=== PATIENT | female | born 1995 | race African-American/Black ===

== ENCOUNTER 2017-09-18 03:11 | Emergency (ER) | payer BC ==
[2017-09-18 03:31] VITALS: BP 134/78; PULSE 79; TEMP 98.4; BMI 37.3
--- NOTE | 2017-09-18 03:46 | PDOC ---
History of Present Illness - General Chief Complaint: CVA/TIA Stated Complaint: NUMBNESS/RT SIDE FACE Time Seen by Provider: 09/18/17 03:35 History Source: Patient - History of Present Illness Initial Comments: 09/18/17 03:42 22 year old female with numbness to right sided facial twitching x 24 hours. reports similar symptoms 4 months ago hit head while riding a rollercoaster and immediately after the ride patient had right sided facial droop, which self resolved. reports that current symptoms have self resolved. Timing/Duration: reports: 24 hours Past History - Travel Traveled outside of the country in the last 30 days: Yes Close contact w/someone who was outside of country & ill: No - Past Medical History Allergies/Adverse Reactions: Allergies Allergy/AdvReac Type Severity Reaction Status Date / Time No Known Allergies Allergy Verified 09/18/17 03:27 Home Medications: Ambulatory Orders NK [No Known Home Medication] 09/18/17 - Suicide/Smoking/Psychosocial Hx Smoking History: Never smoked Have you smoked in the past 12 months: No Information on smoking cessation initiated: No Hx Alcohol Use: No Drug/Substance Use Hx: No Review of Systems - Review of Systems Able to Perform ROS?: Yes Is the patient limited Bhutanese proficient: No Neurological: Yes: Paresthesia *Physical Exam - Vital Signs Last Vital Signs Temp Pulse Resp BP Pulse Ox 98.4 F 79 20 134/78 98 09/18/17 03:27 09/18/17 03:27 09/18/17 03:27 09/18/17 03:27 09/18/17 03:27 - Physical Exam General Appearance: Yes: Appropriately Dressed HEENT: positive: Normal ENT Inspection Cardiovascular: positive: Regular Rhythm, Regular Rate Gastrointestinal/Abdominal: positive: Normal Bowel Sounds, Soft Extremity: positive: Normal Capillary Refill Integumentary: positive: Normal Color, Warm Neurologic: positive: Fully Oriented, Alert NIH Stroke Scale - Last Known Well Date/Time & Onset Date Last Known Well: 09/17/17 Time Last Known Well: 08:00 - Initial Evaluation Level of consciousness: Alert Ask patient the month and their age: Answers both correctly Ask patient to open & close eyes; make fist and let go: Obeys both correctly Best gaze (horizontal eye movement): Normal Visual field testing: No visual field loss Facial paresis (Show teeth/raise eyebrows/close eyes tight): Normal symmetrical movement Motor Function: Left Arm: Normal Motor Function: Right Arm: Normal (extends arm 90 (or 45) degrees for 10 seconds without drift Motor Function: Left Leg: Normal (extends leg 30 degrees for 5 seconds without drift) Motor Function: Right Leg: Normal (extends leg 30 degrees for 5 seconds without drift) Limb Ataxia: No ataxia Sensory(Use pinprick test arms,legs,trunk,face/side to side): Normal Best language (Describe picture, name items, read sentences): No Aphasia Dysarthria (read several words): Normal articulation Extinction and Inattention: No abnormality - Total Score NIH Stroke Scale Score: 0 Critical Care Time/MDM Note - Medical Decision Making Note: 09/18/17 03:45 A: Right sided faciAL NUMBNESS p; CT HEAD CBC CMP 09/18/17 05:23 PATIENT REQUESTING TO GO HOME. SIGNED OUT AMA. ALL RISK FACTORS REVIEWED. PERSON VERBALIZED UNDERSTANDING. Discharge Disposition - Diagnosis Right facial numbness - Discharge Dispostion Disposition: AGAINST MEDICAL ADVICE
--- NOTE | 2017-09-18 04:05 | PDOC ---
*Physical Exam - Vital Signs Last Vital Signs Temp Pulse Resp BP Pulse Ox 98.4 F 79 20 134/78 98 09/18/17 03:27 09/18/17 03:27 09/18/17 03:27 09/18/17 03:27 09/18/17 03:27 Medical Decision Making - Medical Decision Making 09/18/17 04:04 agree with care from CRUSHER MACHINE OPERATOR Dwight
[2017-09-18 05:13] LABS: URINE APPEARANCE SLCLOUDY; URINE BILIRUBIN NEGATIVE (NEGATIVE); URINE BLOOD NEGATIVE (NEGATIVE); URINE COLOR YELLOW; URINE GLUCOSE (UA) NEGATIVE (NEGATIVE); URINE KETONE NEGATIVE (NEGATIVE); URINE NITRITE NEGATIVE (NEGATIVE); URINE PROTEIN NEGATIVE (NEGATIVE); URINE UROBILINOGEN NEGATIVE mg/dL (0.2-1.0)
[2017-09-18 05:13] LABS: BASOPHIL 0.3 % (0-2.0); EOSINOPHIL 1.6 % (0-4.5); MCH 26.6 pg (25.7-33.7); MEAN CELL VOLUME 80.6 fl (80-96); NEUTROPHILS 46.9 % (42.8-82.8); PLATELET COUNT 230 K/MM3 (134-434); RDW 15.3 % (11.6-15.6); WHITE BLOOD COUNT 7.3 K/mm3 (4.0-10.0)
[2017-09-18 05:23] LABS: INR 1.09 (0.82-1.09); PROTHROMBIN TIME (PATIENT) 12.3 SEC (9.98-11.88)
[2017-09-18 05:37] LABS: ALBUMIN 3.8 g/dl (3.4-5.0); ANION GAP 11 (8-16); BILIRUBIN,TOTAL 0.4 mg/dL (0.2-1.0); CALCIUM 8.7 mg/dL (8.5-10.1); CO2 24 mmol/L (21-32); CREATININE 0.7 mg/dL (0.55-1.02); GLUCOSE,RANDOM 98 mg/dL (74-106); SGOT/AST 24 U/L (15-37); SGPT/ALT 46 U/L (12-78); TOT PROT 6.5 g/dl (6.4-8.2)
[2017-09-18 05:41] LABS: ALK PHOS 52 U/L (45-117); CPK 162 IU/L (26-192); TROPONIN I < 0.02 ng/ml (0.00-0.05)
[2017-09-18 09:33] LABS: URINE LEUK ESTERASE Negative (NEGATIVE)
--- NOTE | 2017-09-21 14:43 | EKG ---
Test Reason : Blood Pressure : / mmHG Vent. Rate : 075 BPM Atrial Rate : 075 BPM P-R Int : 170 ms QRS Dur : 074 ms QT Int : 372 ms P-R-T Axes : 033 036 044 degrees QTc Int : 415 ms POOR DATA QUALITY, INTERPRETATION MAY BE ADVERSELY AFFECTED NORMAL SINUS RHYTHM NORMAL ECG NO PREVIOUS ECGS AVAILABLE Confirmed by PATY GORDON MD ([id number]) on 09/18/2017 9:42:05 AM Also confirmed by PATY GORDON MD ([id number]), multimedia editor ISAURA PORTILLO ([id number]) on 09/21/2017 2:43:34 PM Referred By: Confirmed By:PATY GORDON MD
== END 2017-09-18 05:30 | disposition left against medical advice (07) ==
LOC: JER 03:11
DX: R20.0 Anesthesia of skin (principal); R25.3 Fasciculation
CPT/HCPCS: 36415; 80053; 81003; 82550; 82553; 84478; 84484; 84703; 85025; 85610; 86850; 86900; 86901; 93005; 93010; 99281-25

== ENCOUNTER 2019-03-29 18:14 | Emergency (ER) | payer BC ==
[2019-03-29 18:31] VITALS: BP 140/93; PULSE 90; TEMP 98.6; BMI 41.3
[2019-03-29] MEDS ORDERED: MECLIZINE HCL 25 MG TABLET (FP) PO ONE (19:20)
[2019-03-29] MEDS ORDERED: MECLIZINE HCL 25 MG TABLET (FP) ONE (19:21)
[2019-03-29 19:49] LABS: BASO % 1.1 % (0-2.0); HEMATOCRIT 41.3 % (32.4-45.2); HEMOGLOBIN 13.4 GM/dl (10.7-15.3); LYMPH % 37.1 % (8-40); MCH 26.6 pg (25.7-33.7); MCHC 32.4 g/dl (32.0-36.0); MEAN PLT VOLUME 8.5 fl (7.5-11.1); MONO % 6.4 % (3.8-10.2); NEUT % 54.4 % (42.8-82.8); PLATELET COUNT 279 K/MM3 (134-434); RBC 5.03 M/mm3 (3.60-5.2); RDW 14.7 % (11.6-15.6); WHITE BLOOD COUNT 4.8 K/mm3 (4.0-10.8)
[2019-03-29 20:00] LABS: ALBUMIN 3.7 g/dl (3.4-5.0); ALK PHOS 46 U/L (45-117); ANION GAP 6 MMOL/L (8-16); BILIRUBIN,TOTAL 0.4 mg/dl (0.2-1); BLOOD UREA NITROGEN 11 mg/dl (7-18); CALCIUM 9.3 mg/dl (8.5-10); CHLORIDE 104 mmol/L (98-107); CO2 26 mmol/L (21-32); CREATININE 0.6 mg/dl (0.55-1.3); GLUCOSE,RANDOM 94 mg/dl (74-106); POTASSIUM 3.9 mmol/L (3.5-5.1); SGOT/AST 21 U/L (15-37); SGPT/ALT 30 U/L (13-61); SODIUM 136 mmol/L (136-145)
--- NOTE | 2019-03-29 20:15 | PDOC ---
Documentation entered by Maxine Gaspar SCRIBE, acting as scribe for Mario Alberto Toro MD. Mario Alberto Toro MD: This documentation has been prepared by the Hubert rosado Renju, SCRIBE, under my direction and personally reviewed by me in its entirety. I confirm that the documentation accurately reflects all work, treatment, procedures, and medical decision making performed by me. History of Present Illness - General Chief Complaint: Lightheaded Stated Complaint: dizziness s/p overdose of Iron pills. Time Seen by Provider: 03/29/19 19:06 History Source: Patient Exam Limitations: No Limitations - History of Present Illness Initial Comments: 03/29/19 19:31 HPI The patient is a 24 year old female who presents to the emergency department complaining of dizziness. Patient reports dizziness since Thursday, described as room spinning, and exacerbated with head movement. She notes her dizziness began on her flight back from [place] on Thursday. Patient endorses mild congestion from seasonal allergies and one episode of nausea on the flight back to [place]. She denies taking medication for the aforementioned symptoms. Patient notes she took five 28mg iron capsules on Thursday. She states she has been taking iron pills daily over the last 6 months due to episodes of fatigue as her mother suggested she may be anemic. Patient states her last blood work was done in June where she was told she was not anemic. She endorses dry/ scratchy throat, but denies recent upper respiratory infections, or cough. Denies history of known blood disorder. The patient denies chest pain, shortness of breath, and headache. Denies fevers , chills, nausea, vomiting, diarrhea, and constipation. PAST MEDICAL HISTORY: Asthma PAST SURGICAL HISTORY: no significant history FAMILY HISTORY: no pertinent history SOCIAL HISTORY: Pt lives with family and is employed. MEDICATIONS: reviewed ALLERGIES: As per nursing notes Review of Systems General: No fevers or chills, no weakness, no weight loss HEENT: No change in vision. No sore throat,. No ear pain Cardiovascular: No chest pain or shortness of breath Respiratory:No cough, or wheezing. Gastrointestinal: no nausea, vomiting, diarrhea or constipation, No rectal bleeding Genitourinary: No dysuria, hematuria, or frequency Musculoskeletal: No joint or muscle pain or swelling Neurologic: (+)Dizziness. No headache, vertigo, or loss of consciousness Psychiatric: nor depression Skin: No rashes or easy bruising Endocrine: no increased thirst or abnormal weight change Allergic: no skin or latex allergy All other systems reviewed and normal Physical Exam: General: Well-nourished well-developed individual, no acute distress HEENT: Throat: Normal, tonsils normal, no erythema or exudate Neck: Supple, no meningeal signs, no lymphadenopathy Eyes:Pupils equal reactive and round, extraocular motion intact Chest: Nontender to palpation Cardiac: S1-S2 normal, regular rate and rhythm, no murmurs rubs or gallops Respiratory: Lungs clear to auscultation bilateral Abdomen: Soft, nondistended, normal bowel sounds, nontender to palpation diffusely Extremities: Warm, dry, no cyanosis, clubbing, or edema Skin: No rashes Neuro: Alert and oriented x3, nonfocal exam, grossly intact, normal gait Psych: Normal mood and affect 03/29/19 20:12 Assessment and plan: This is a 24 her old female who comes in complaining of dizziness. Patient describes her dizziness as a spinning sensation or vertigo. Patient does have seasonal ALLERGIES otherwise denies any other symptoms. Patient said that it was associated with nausea a few days ago but that seems to have improved. Patient otherwise denies any complaints. Patient given meclizine And basic labs were sent as patient thought she may be anemic so labs were normal with a hemoglobin of 13.5. Patient was told she should stop taking iron pills and follow-up with her primary care doctor in 6 months to have her hemoglobin level rechecked Past History - Past Medical History Allergies/Adverse Reactions: Allergies Allergy/AdvReac Type Severity Reaction Status Date / Time No Known Allergies Allergy Verified 03/29/19 18:17 Home Medications: Ambulatory Orders Albuterol Sulfate Inhaler - [Ventolin Hfa Inhaler -] 2 inh PO Q6H PRN 03/29/19 Beclomethasone Dipropionate [Qvar] 80 mcg IH BID 03/29/19 Fluticasone Prop 0.05% Nasal [Flonase -] 1 - 2 spray NS BID 03/29/19 Meclizine HCl [Antivert -] 25 mg PO QID #28 tablet 03/29/19 Anemia: Yes Asthma: Yes COPD: No - Suicide/Smoking/Psychosocial Hx Smoking History: Never smoked Have you smoked in the past 12 months: No Hx Alcohol Use: No Drug/Substance Use Hx: No *Physical Exam - Vital Signs Last Vital Signs Temp Pulse Resp BP Pulse Ox 98.6 F 90 16 140/93 99 03/29/19 18:16 03/29/19 18:16 03/29/19 18:16 03/29/19 18:16 03/29/19 18:16 ED Treatment Course - LABORATORY CBC & Chemistry Diagram: 03/29/19 19:29 03/29/19 19:29 - ADDITIONAL ORDERS Additional order review: Laboratory Results 03/29/19 19:29 Sodium 136 Potassium 3.9 Chloride 104 Carbon Dioxide 26 Anion Gap 6 L BUN 11 Creatinine 0.6 Creat Clearance w eGFR 120.84 Random Glucose 94 Calcium 9.3 Total Bilirubin 0.4 AST 21 ALT 30 Alkaline Phosphatase 46 Total Protein 7.0 Albumin 3.7 03/29/19 19:29 RBC 5.03 MCV 82.0 MCHC 32.4 RDW 14.7 MPV 8.5 Neutrophils % 54.4 Lymphocytes % 37.1 Monocytes % 6.4 Eosinophils % 1.0 Basophils % 1.1 - Medications Given in the ED: ED Medications Discontinued Medications Generic Name Dose Route Start Last Admin Trade Name Freq PRN Reason Stop Dose Admin Meclizine HCl 50 mg 03/29/19 19:20 03/29/19 19:28 Antivert - PO 03/29/19 19:21 50 mg ONCE ONE Administration *DC/Admit/Observation/Transfer Diagnosis at time of Disposition: Vertigo - Discharge Dispostion Disposition: HOME Condition at time of disposition: Fair Decision to Admit order: No - Prescriptions Prescriptions: Meclizine HCl [Antivert -] 25 mg PO QID #28 tablet - Referrals - Patient Instructions Additional Instructions: Take meclizine 1 tablet as often as 4 times a day for the dizziness/spinning sensation. Your blood work was all normal including your hemoglobin level which says you are not anemic. You should stop taking the iron tablets and follow up with your primary care doctor in 6 months to have it rechecked, Return to the emergency department immediately with ANY new, persistent or worsening symptoms. Continue any medications as previously prescribed by your physician. You should follow up with your primary doctor as soon as possible regarding today's emergency department visit. . Please make sure your doctor reviews the results of your emergency evaluation. Thank you for coming to the Emergency Department today for your care. It was a pleasure to see you today. Please note that your evaluation is INCOMPLETE until you follow-up with your doctor. - Post Discharge Activity
== END 2019-03-29 20:21 | disposition home or self-care (01) ==
LOC: FER 18:14
DX: R42 Dizziness and giddiness (principal); R09.81 Nasal congestion
CPT/HCPCS: 36415; 80053; 85025; 99282-25